=== PATIENT | female | born 1965 | race Caucasian/White ===

== ENCOUNTER 2018-11-27 10:17 | Outpatient (CLI) | payer OTHER, SELFPAY ==
--- NOTE | 2018-11-27 10:12 | DI.COMBO_ITS ---
SYMPTOM/DIAGNOSIS: KNEE PAIN RIGHT KNEE: 11/27/18 Four views were obtained. There may be slight narrowing of the medial tibial femoral cartilaginous joint space. Mild hypertrophic spurring of the bones of the knee noted No other abnormality seen. 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 LEFT KNEE: 11/27/18 Three views were obtained. There is mild narrowing of the medial tibial femoral cartilaginous joint space. Mild hypertrophic spurring of the bones of the knee noted. CONCLUSION: DJD, predominantly involving medial tibial femoral joint.
== END 2018-11-27 10:37 ==
PROVIDERS: Visit Provider Physician Assistant
DX: M25.561 Pain in right knee (principal); M25.562 Pain in left knee; M17.0 Bilateral primary osteoarthritis of knee
CPT/HCPCS: 73562

== ENCOUNTER 2019-03-12 14:35 | Outpatient (CLI) | payer OTHER, SELFPAY ==
--- NOTE | 2019-03-12 13:10 | DI.RAD_ITS ---
SYMPTOM/DIAGNOSIS: ANTEROMEDIAL KNEE PAIN MERCHANT VIEWS: Two views. There is mild lateral tilt of the right patella. The left patella appears grossly unremarkable. The soft tissues are unremarkable. The bones appear normally mineralized.
== END 2019-03-12 14:55 ==
PROVIDERS: Visit Provider Student in an Organized Health Care Education/Training Program
DX: M25.561 Pain in right knee (principal); M25.562 Pain in left knee; M22.2X1 Patellofemoral disorders, right knee
CPT/HCPCS: 73565

== ENCOUNTER 2019-03-20 00:40 | Outpatient (CLI) | payer OTHER, SELFPAY ==
--- NOTE | 2019-03-20 11:20 | DI.MRI_ITS ---
SYMPTOMS/DIAGNOSIS: RT KNEE PAIN, PRIMARY OSTEOARTHRITIS, M17.11, [facility] CANDIDATE? MRI OF THE RIGHT KNEE: Comparison is made with plain films dated . The fat suppressed T 2 axial, proton density and fat suppressed T 2 sagittal and coronal and proton density oblique sagittal sequences were performed. There is a moderate sized joint effusion. The cruciate and collateral ligaments and extensor mechanism appear intact. There is cartilage thinning of the medial patellar facet extending down to bone. There is some lateral patellar subluxation. There is also cartilage thinning extending down to bone of the medial femoral condyle. The medial meniscus is peripherally displaced and has a diminutive appearance consistent with degeneration. The lateral meniscus and lateral femoral tibial cartilage show no significant defect. 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
== END 2019-03-20 01:00 ==
PROVIDERS: Visit Provider Student in an Organized Health Care Education/Training Program
DX: M25.561 Pain in right knee; M17.11 Unilateral primary osteoarthritis, right knee; M94.262 Chondromalacia, left knee
CPT/HCPCS: 73721